=== PATIENT | male | born 1995 | race Caucasian/White ===

== ENCOUNTER 2018-09-05 02:10 | Emergency (ER) | payer OTHER ==
[~2018-09-05] VITALS: Ht 172.7 cm; Wt 72.6 kg
--- NOTE | 2018-09-05 02:10 | NUR ---
BIB EMS FROM [facility]. TRANSFERED FROM [facility] TO BED 9 BY STAFF AND EMS. ALERT TO PAINFUL STIMULI. INCOMPREHENSIBLE SPEECH [facility] 5/15.
[2018-09-05 02:18] VITALS: BP 116/67
[2018-09-05] MEDS ORDERED: NACL 0.9% 2,000 ML IV ONE (02:40)
[2018-09-05] MEDS ORDERED: ONDANSETRON 4 MG/2 ML VIAL IVP ONE (02:40)
--- NOTE | 2018-09-05 03:00 | NUR ---
PT BIBA FOR ETOH AND ALERTED. PT IS AROUSABLE TO PAINFUL STIMULI AND SPEAKS BUT SLURRED MUMBLED SPEECH. PERRL. PT HAS VOMIT ON CLOTHES AND VOMITING, PT SAT UPRIGHT AND ON SIDE, SUCTION AT BEDSIDE. RR EVEN AND UNLABORED. ER MD AWARE OF PT STATUS WILL CONTINUE W/ ORDERS.
--- NOTE | 2018-09-05 05:15 | NUR ---
PT AMBULATORY NO ASSISTANCE TO BATHROOM, PT REMOVED IV , PIV INTACT, BANDAGE APPLIED.
--- NOTE | 2018-09-05 05:48 | NUR ---
PT [facility] CALLED FOR RIDE BACK TO [employer]OL.
[2018-09-05 06:10] VITALS: BP 114/50
--- NOTE | 2018-09-05 06:10 | NUR ---
Patient discharged with v/s stable. Written and verbal after care instructions given and explained. Patient verbalized understanding. Ambulatory with steady gait. All questions addressed prior to discharge. Advised to follow up with PMD. PT TO WAIT IN CHAIR FOR [facility] FOR RIDE.
--- NOTE | 2018-09-05 06:16 | NUR ---
ODETTE IN ER TO TAKE PT HOME AT THIS TIME, PT AMBULATORY EVEN STEADY GAIT.
== END 2018-09-05 06:10 | disposition home or self-care (01) ==
LOC: MED 02:10
DX: F10.129 Alcohol abuse with intoxication, unspecified (principal); Z91.048 Other nonmedicinal substance allergy status
CPT/HCPCS: 96374; 99283; J2405; J7030